=== PATIENT | female | born 2000 | race Caucasian/White ===

== ENCOUNTER 2020-02-17 22:11 | Emergency (ER) | payer MEDICAID, OTHER ==
[~2020-02-17] VITALS: Ht 162.6 cm; Wt 52.1 kg
--- NOTE | 2020-02-17 22:42 | NUR ---
THIS IS A 19 YO FEMALE COMING IN FOR VAGINAL BLEEDING SINCE SUNDAY, HAD WHITE DISCHARGE WEEK PRIOR. PATIENT ALSO C/O COUGH FOR THE LAST 3-4 DAYS, UNPRODUCTIVE. PATIENT STATES SHE HAS NEVER BEEN , HAS UNPROTECTED SEX, DOES NOT TAKE ANY FORM OF CONTROL. C/O RIGHT UPPER RIB PAIN WELL. SPEAKING IN FULLSENTENCES, VSS, NAD AT THIS TIME, SPO2 AND BP MONITORING IN PLACE. UA CUP GIVEN WITH INSTRUCTIONS
--- NOTE | 2020-02-17 23:02 | NUR ---
UA COLLECTED AND SENT
[2020-02-17 23:14] LABS: MICROSCOPIC AUTO
[2020-02-17 23:19] LABS: BASOPHILS # (AUTO) 0.02 x10^3/uL (0-0.3); BASOPHILS % (AUTO) 0 % (0-1); EOSINOPHILS # (AUTO) 0.08 x10^3/uL (0-0.8); EOSINOPHILS % (AUTO) 1 % (1-7); LYMPHOCYTES # (AUTO) 2.88 x10^3/uL (1-6.1); LYMPHOCYTES % (AUTO) 33 % (22-44); MD NO; MEAN CORPUSCULAR HEMOGLOBIN 31.7 pg (27.0-34.8); MEAN CORPUSCULAR HGB CONC 34.1 g/dL (32.4-35.8); MEAN PLATELET VOLUME 9.1 fL (7.4-10.4); MONOCYTES # (AUTO) 0.63 x10^3/uL (0-1.4); MONOCYTES % (AUTO) 7 % (2-9); NEUTROPHILS # (AUTO) 5.01 x10^3/uL (1.8-8.0); NEUTROPHILS % (AUTO) 58 % (42-75); PLATELET COUNT 262 x10^3/uL (130-400); RED BLOOD COUNT 4.78 x10^6/uL (3.82-5.3); RED CELL DISTRIBUTION WIDTH 12.4 % (9.6-15.2)
[2020-02-17 23:22] LABS: ALANINE AMINOTRANSFERASE 18 U/L (12-78); ALBUMIN 4.2 g/dL (3.4-5.0); ANION GAP 5 mmol/L (5-15); CALCIUM 8.8 mg/dL (8.5-10.1); CHLORIDE 107 mmol/L (98-107); CREATININE 0.75 mg/dL (0.55-1.02)
[2020-02-17 23:24] LABS: CULTURE INDICATED? NO
[2020-02-17 23:26] LABS: ALKALINE PHOSPHATASE 59 U/L (45-117); TOTAL PROTEIN 8.2 g/dL (6.4-8.2)
[2020-02-17 23:28] LABS: BILIRUBIN,TOTAL < 0.1 mg/dL (0.2-1.0)
[2020-02-17 23:33] VITALS: BP 124/80
--- NOTE | 2020-02-17 23:34 | NUR ---
[facility] IN ROOM
--- NOTE | 2020-02-18 00:14 | NUR ---
Patient given discharge instructions and they have confirmed that they understand the instructions. Patient ambulatory with steady gait.
== END 2020-02-18 00:21 | disposition home or self-care (01) ==
LOC: ED 22:28
DX: R07.81 Pleurodynia (principal); R05 Cough; N92.1 Excessive and frequent menstruation with irregular cycle
CPT/HCPCS: 36415; 71045; 76830; 80053; 81001; 84703; 85025; 99285

== ENCOUNTER 2020-03-06 14:28 | Emergency (ER) | payer MEDICAID ==
[~2020-03-06] VITALS: Ht 162.6 cm; Wt 52.2 kg
[2020-03-06 14:37] VITALS: BP 113/78
--- NOTE | 2020-03-06 14:42 | NUR ---
VITALS OBTAINED BY THIS TECH
[2020-03-06] MEDS ORDERED: LIDOCAINE-MPF 1%, 5ML INFIL ONE (15:30)
--- NOTE | 2020-03-06 15:34 | NUR ---
[employer]: PT AMBULATORY TO ROOM WITH STEADY GAIT FROM [facility] AT THIS TIME
[2020-03-06] MEDS ORDERED: LIDOCAINE-MPF 1%, 5ML ONE (15:57)
[2020-03-06] MEDS ORDERED: NEOSPORIN OINT. PKT 1 PACKET ONE (16:13)
--- NOTE | 2020-03-06 16:32 | NUR ---
Patient given discharge instructions and they have confirmed that they understand the instructions. Patient ambulatory with steady gait.
== END 2020-03-06 16:33 | disposition home or self-care (01) ==
LOC: ED 15:43
DX: S61.220A Laceration with foreign body of right index finger without damage to nail, initial encounter (principal); S61.222A Laceration with foreign body of right middle finger without damage to nail, initial encounter; S60.450A Superficial foreign body of right index finger, initial encounter; W45.8XXA Other foreign body or object entering through skin, initial encounter; Y93.89 Activity, other specified; Y92.009 Unspecified place in unspecified non-institutional (private) residence as the place of occurrence of the external cause; Y99.8 Other external cause status
CPT/HCPCS: 64450; 99284